=== PATIENT | male | born 1980 | race Two or more races ===

== ENCOUNTER 2020-01-13 15:37 | Emergency (ER) | payer MEDICAID, OTHER ==
[~2020-01-13] VITALS: Ht 170.2 cm; Wt 84.8 kg
[2020-01-13 16:34] LABS: Basophils # (auto) 0.1 10 ^3/uL (0-0.2); Basophils % (auto) 1.3 % (0.0-2.0); Eosinophils # (auto) 0.3 10 ^3/uL (0-0.8); Eosinophils % (auto) 4.2 % (0.0-7.0); Hemoglobin 16.9 g/dL (13.5-17.5); Lymphocytes # (auto) 2.1 10 ^3/uL (0.4-5.4); Lymphocytes % (auto) 25.7 % (10.0-50.0); Mean Corpuscular Hemoglobin 31.9 pg (28.0-32.0); Mean Corpuscular Hgb Conc. 33.1 g/dL (32.0-36.0); Mean Corpuscular Volume 96.4 fL (80.0-100.0); Monocytes # (auto) 0.6 10 ^3/uL (0-1.3); Monocytes % (auto) 7.3 % (0.0-12.0); Neutrophils # (auto) 5.1 10 ^3/uL (1.6-8.6); Neutrophils % (auto) 61.5 % (37.0-80.0); Nucleated Red Blood Cells % 0.1 %; Platelet Count (auto) 238 10^3/uL (140-450); Red Blood Cells 5.29 10^6/uL (4.5-5.90); White Blood Cell 8.3 10^3/uL (4.4-10.8)
[2020-01-13] MEDS ORDERED: OLANZapine 5 MG TAB PO ONE (16:45)
[2020-01-13] MEDS ORDERED: SERTRALINE HCL 50 MG TAB PO ONE (16:45)
[2020-01-13 16:53] LABS: Alcohol, Urine < 3.0 mg/dL (0-10); Amphetamine Screen, Urine POSITIVE (NEGATIVE); Barbiturate Scree,Urine NEGATIVE (NEGATIVE); Benzodiazephine Screen, Urine NEGATIVE (NEGATIVE); Cannabinoid Screen, Urine POSITIVE (NEGATIVE); Cocaine Screen, Urine NEGATIVE (NEGATIVE); Opiate Scree,Urine NEGATIVE (NEGATIVE); Phencyclidine Screen, Urine POSITIVE (NEGATIVE)
[2020-01-13 16:57] LABS: Urine Bacteria NONE SEEN /hpf (None Seen); Urine Blood Negative /uL (Negative); Urine Mucus FEW (None Seen); Urine WBC <1 /hpf (0 - 3)
[2020-01-13 16:59] LABS: Albumin 4.2 g/dL (3.4-5.0); Calcium 9.1 mg/dL (8.5-10.1); Potassium 4.3 mmol/L (3.5-5.1)
[2020-01-13 17:00] LABS: Salicylate < 1.7 mg/dL (2.8-20.0)
[2020-01-13 17:01] LABS: Acetaminophen < 2.0 ug/mL (10-30)
[2020-01-13 17:03] LABS: Bilirubin, Total 0.5 mg/dL (0.2-1.0); Total Protein 8.2 g/dL (6.4-8.2)
[2020-01-14] MEDS ORDERED: SERTRALINE HCL 50 MG TAB PO SCH (10:00)
[2020-01-14] MEDS ORDERED: OLANZapine 5 MG TAB PO SCH (10:00)
[2020-01-14] MEDS ORDERED: hydrOXYzine 25 MG TAB or CAP PO SCH (14:00)
[2020-01-14] MEDS ORDERED: hydrOXYzine 25 MG TAB or CAP ONE (14:44)
[2020-01-14 17:08] VITALS: BP 126/81
== END 2020-01-14 17:45 | disposition still patient (30) ==
LOC: ER 15:37
DX: F20.9 Schizophrenia, unspecified (principal); F31.32 Bipolar disorder, current episode depressed, moderate; F15.10 Other stimulant abuse, uncomplicated; F12.10 Cannabis abuse, uncomplicated; F16.10 Hallucinogen abuse, uncomplicated; F17.210 Nicotine dependence, cigarettes, uncomplicated; F11.20 Opioid dependence, uncomplicated
CPT/HCPCS: 36415; 71046; 80053; 80307; 80329; 81001; 83735; 85025; 87426; 93005